=== PATIENT | male | born 1955 | race Caucasian/White ===

== ENCOUNTER → 2017-02-15 | Outpatient (CLI) | payer BC | LOC: CARD 09:40 | PROVIDERS: ATTEND Internal Medicine Cardiovascular Disease | DX: I25.10 Atherosclerotic heart disease of native coronary artery without angina pectoris (principal); E78.4 Other hyperlipidemia; E66.3 Overweight | CPT/HCPCS: 93306 ==

== ENCOUNTER → 2017-10-30 | Outpatient (CLI) | payer BC ==
[~2017-10-30] VITALS: Ht 185.4 cm; Wt 111.1 kg
[~2017-10-30] MED LIST: CATHETER FLUSH 10 ML SYR IV PRN
[2017-10-30 09:07] VITALS: BP 126/77
[2017-10-30 09:18] VITALS: BP 173/99
[2017-10-30 09:20] VITALS: BP 171/99
[2017-10-30 09:22] VITALS: BP 156/94
--- NOTE | 2017-10-31 10:10 | STRESS TEST ---
DATE OF SERVICE: 10/30/2017 RESTING AND POST EXERCISE TECHNETIUM-99M TETROFOSMIN SPECT CT IMAGING ORDERING PHYSICIAN: Lisa Gray APRN. ORDERING PHYSICIAN: Layla Morgan MD, MA, FACP, FACC. CLINICAL DIAGNOSIS: Coronary artery disease. Baseline images were carried out after injection of 10.91 mCi of technetium-99m Tetrofosmin. This was followed by exercise on a treadmill. Juan protocol was employed. Heart rate and blood pressure responses to exercise were normal. Exercise was stopped on account of fatigue. After he had attained more than 85% of maximum predicted heart rate, 30.3 mCi of technetium-99m Tetrofosmin were injected and the exercise was continued for another minute. Exercise was stopped on account of fatigue. He attained 96% of maximum predicted heart rate and 7.1 METS of workload. He exercised for a total of 5 minutes and 41 seconds in the Juan protocol. There was baseline artifact at peak exercise, but there did not appear to be significant ST segment changes over baseline. Review of images at rest and following stress indicates a partially transient lateral wall perfusion defect. Gated images show lateral wall hypokinesis. Left ventricular ejection fraction is calculated to be 64%. Left ventricular end diastolic volume is 93 mL. TID is absent (1.04). CONCLUSIONS: 1. The study is indicative of lateral wall infarction with a small to moderate amount of layne-infarct ischemia. 2. Lateral wall hypokinesis. 3. Well-preserved global left ventricular systolic function with an ejection fraction of 64%. 4. Somewhat low exercise capacity. Job ID: [id number] DocumentID: [id number] Dictated Date: 10/31/2017 09:15:33 Border Patrol Agent Date: 10/31/2017 10:10:13 Dictated By: LAYLA MORGAN MD, MA, FACP, FACC, MTDD
== END ==
LOC: CARD 06:58
PROVIDERS: ATTEND Nurse Practitioner Family
DX: I25.10 Atherosclerotic heart disease of native coronary artery without angina pectoris (principal)
CPT/HCPCS: 78452; 93017

== ENCOUNTER 2017-11-27 06:57 | Day surgery (SDC) | payer BC ==
[~2017-11-27] VITALS: Ht 185.4 cm; Wt 111.1 kg
[2017-11-27] VITALS (9 sets, daily range): BP systolic 117–133; BP diastolic 75–85
[2017-11-27] MEDS ORDERED: LIDOCAINE 1% INJ 20 ML 20 ML VIAL ONE (06:59)
[2017-11-27] MEDS ORDERED: HEParin (CATH LAB) 2,000 ML IV ONE (06:59)
[2017-11-27] MEDS ORDERED: NS IV 1000 ML 1,000 ML IV SCH ×2 (07:00→09:30)
--- OUTSIDE RECORDS SUMMARY | 2017-11-27 07:00 | XMS REPORT | Continuity of Care Document ---
Author Author [facility] Organization [facility] Address Unknown Phone Unavailable Allergies Active Description Code Type Severity Reaction Onset Reported/Identified Relationship to Patient Clinical Status Yes blue dye [id number] Drug Allergy Unknown N/A 10/30/2017 Medications There is no data. Problems Date Dx Coded Attending Type Code Diagnosis Diagnosed By 08/12/2015 JHON MORGAN MD, FACC FACP CCDS Ot Z48.812 ENCNTR FOR SURGICAL AFTCR FOLLOWING SURG 08/12/2015 JHON MORGAN MD, FACC FACP CCDS Ot Z95.5 PRESENCE OF CORONARY ANGIOPLASTY IMPLANT 10/10/2015 JHON MORGAN MD, FACC FACP CCDS Ot Z48.812 ENCNTR FOR SURGICAL AFTCR FOLLOWING SURG 10/10/2015 JHON MORGAN MD, FACC FACP CCDS Ot Z95.5 PRESENCE OF CORONARY ANGIOPLASTY IMPLANT 10/11/2015 JHON MORGAN MD, FACC FACP CCDS Ot Z48.812 ENCNTR FOR SURGICAL AFTCR FOLLOWING SURG 10/11/2015 JHON MORGAN MD, FACC FACP CCDS Ot Z95.5 PRESENCE OF CORONARY ANGIOPLASTY IMPLANT 06/06/2016 JHON MORGAN MD, FACC FACP CCDS Ot Z48.812 ENCNTR FOR SURGICAL AFTCR FOLLOWING SURG 06/06/2016 JHON MORGAN MD, FACC FACP CCDS Ot Z95.5 PRESENCE OF CORONARY ANGIOPLASTY IMPLANT 06/13/2016 JHON MORGAN MD, FACC FACP CCDS Ot Z48.812 ENCNTR FOR SURGICAL AFTCR FOLLOWING SURG 06/13/2016 JHON MORGAN MD, FACC FACP CCDS Ot Z95.5 PRESENCE OF CORONARY ANGIOPLASTY IMPLANT 02/20/2017 JHON MORGAN MD, FACC FACP CCDS Ot E66.3 OVERWEIGHT 02/20/2017 JHON MORGAN MD, FACC FACP CCDS Ot E78.4 OTHER HYPERLIPIDEMIA 02/20/2017 JHON MORGAN MD, FACC FACP CCDS Ot I25.10 ATHSCL HEART DISEASE OF [place] CORONARY 02/22/2017 CATHY VASQUEZ FACC, ALI FACP CCDS Ot E66.3 OVERWEIGHT 02/22/2017 CATHY VASQUEZ FACC, ALI FACP CCDS Ot E78.4 OTHER HYPERLIPIDEMIA 02/22/2017 CATHY MD FACC, ALI FACP CCDS Ot I25.10 ATHSCL HEART DISEASE OF [place] CORONARY 03/01/2017 CATHY VASQUEZ FACC, ALI FACP CCDS Ot E66.3 OVERWEIGHT 03/01/2017 CATHY VASQUEZ FACC, ALI FACP CCDS Ot E78.4 OTHER HYPERLIPIDEMIA 03/01/2017 CATHY VASQUEZ FACC, ALI FACP CCDS Ot I25.10 ATHSCL HEART DISEASE OF [place] CORONARY 10/26/2017 CATHY VASQUEZ FACC, ALI FACP CCDS Ot Z48.812 ENCNTR FOR SURGICAL AFTCR FOLLOWING SURG 10/26/2017 CATHY VASQUEZ FACJr, ALI FACP CCDS Ot Z95.5 PRESENCE OF CORONARY ANGIOPLASTY IMPLANT 10/26/2017 CATHY VASQUEZ FACC, ALI FACP CCDS Ot E66.3 OVERWEIGHT 10/26/2017 CATHY VASQUEZ FACC, ALI FACP CCDS Ot E78.4 OTHER HYPERLIPIDEMIA 10/26/2017 CATHY VASQUEZ FACC, ALI FACP CCDS Ot I25.10 ATHSCL HEART DISEASE OF [place] CORONARY 10/30/2017 CATHY VASQUEZ FACJr, ALI FACP CCDS Ot Z48.812 ENCNTR FOR SURGICAL AFTCR FOLLOWING SURG 10/30/2017 CATHY VASQUEZ FACC, ALI FACP CCDS Ot Z95.5 PRESENCE OF CORONARY ANGIOPLASTY IMPLANT 10/31/2017 ANJALI OWENS SUPERVISOR MACHINING Ot I25.10 ATHSCL HEART DISEASE OF [place] CORONARY 11/14/2017 ANJALI OWENS SUPERVISOR MACHINING Ot I25.10 ATHSCL HEART DISEASE OF [place] CORONARY Procedures There is no data. Results There is no data. Encounters ACCT No. Visit Date/Time Discharge Status Pt. Type Provider Facility Loc./Unit Complaint [id number] 10/30/2017 06:58:00 10/30/2017 23:59:59 CLS Outpatient ANJALI OWENSP [facility] CARD CAD [id number] 02/15/2017 09:40:00 02/15/2017 23:59:59 CLS Outpatient CATHY VASQUEZ FACC, ALI FACP CCDS [facility] CARD CAD I25.10 [id number] 10/11/2015 08:00:00 10/11/2015 23:59:59 CLS Preadmit CATHY VASQUEZ FACC, ALI FACP CCDS [facility] CR STENT [id number] 08/20/2015 08:00:00 10/10/2015 00:01:00 DIS Outpatient CATHY VASQUEZ FACC, ALI FACP CCDS [facility] CR STENT [id number] 11/27/2017 06:57:00 ACT Outpatient CATHY VASQUEZ FACC, JHON FACP CCDS [facility] CATH ABNORMAL STRESS TEST,CAD
[2017-11-27] MEDS ORDERED: LISI10TA2 PO (07:17)
[2017-11-27] MEDS ORDERED: ASPI-983 PO (07:17)
[2017-11-27] MEDS ORDERED: CARV6.25 PO (07:17)
[2017-11-27] MEDS ORDERED: ATOR80TA76 PO (07:17)
[2017-11-27 07:21] LABS: HEMOGLOBIN 14.7 G/DL (13.3-17.7); MEAN PLATELET VOLUME 9.4 FL (7.4-10.4); RED BLOOD COUNT 4.91 10^6/uL (4.35-5.85); RED CELL DISTRIBUTION WIDTH 13.1 % (10.0-14.5); WHITE BLOOD COUNT 5.4 10^3/uL (4.3-11.0)
[2017-11-27] MEDS ORDERED: fentaNYL INJECTION 100 MCG/2 ML AMP ONE (07:29)
[2017-11-27] MEDS ORDERED: HEParin 1000 UNIT/ML (10ML VIAL) FOR BOLUS ONE (07:29)
[2017-11-27] MEDS ORDERED: MIDAZOLAM 5 MG/5 ML (VERSED) VIAL ONE (07:29)
[2017-11-27] MEDS ORDERED: diphenhydrAMINE 25 MG TAB (BENADRYL) PO ONE ×3 (07:32→07:45)
[2017-11-27 07:35] LABS: PROTHROMBIN TIME PATIENT 12.9 SEC (12.2-14.7)
[2017-11-27 07:43] LABS: ALANINE AMINOTRANSFERASE 23 U/L (0-55); ALBUMIN 4.3 GM/DL (3.2-4.5); ALKALINE PHOSPHATASE 60 U/L (40-136); BILIRUBIN,TOTAL 1.5 MG/DL (0.1-1.0); BUN/CREATININE RATIO 20; CALCIUM 9.5 MG/DL (8.5-10.1); CARBON DIOXIDE 25 MMOL/L (21-32); CHLORIDE 104 MMOL/L (98-107); CHOLESTEROL 109 MG/DL (< 200); CREATININE SERUM 0.79 MG/DL (0.60-1.30); GFR ESTIMATED > 60; GLUCOSE 117 MG/DL (70-105); HDL CHOLESTEROL 35 MG/DL (40-60); POTASSIUM 4.2 MMOL/L (3.6-5.0); SODIUM 136 MMOL/L (135-145); TOTAL PROTEIN 7.1 GM/DL (6.4-8.2); TRIGLYCERIDES 62 MG/DL (<150); VLDL CHOLESTEROL 12 MG/DL (5-40)
[2017-11-27] MEDS ORDERED: FLU QUADRIvalent (5+ YOA) 2018-2019 (AFLURIA) 0.5 ML IM ONE (08:30)
[2017-11-27] MEDS ORDERED: ADENOSINE 3 MG/1 ML (ADENOSCAN) 30ML VIAL IV ONE ×2 (08:55→08:58)
[2017-11-27] MEDS ORDERED: ASPIRIN 81 MG CHEW (CHILDREN'S ASA) ONE (09:22)
[2017-11-27] MEDS ORDERED: CLOPIDOGREL 75 MG (PLAVIX) TABLET ONE (09:43)
--- NOTE | 2017-11-27 11:07 | Cardiac Procedure Note-CS/ASA ---
Pre-Procedure Note Pre-Op Procedure Note H&P Reviewed The H&P was reviewed, patient examined and no changes noted. Date H&P Reviewed: Nov 27, 2017 Time H&P Reviewed: 08:50 Conscious Sedation Pre-Proced Time 08:50 ASA Score 3 For ASA 3 and 4: Consider anesthesia and medical clearance. Also, for patients with a history of failed moderate sedation consider anesthesia. Airway Lungs Heart ASA score ASA 1: a normal healthy patient ASA 2: a patient with a mild systemic disease (mid diabetes, controlled hypertension, obesity ASA 3: a patient with a severe systemic disease that limits activity (angina , COPD, prior Myocardial infarction) ASA 4: a patient with an incapacitating disease that is a constant threat to life (CHF, renal failure) ASA 5: a moribund patient not expected to survive 24 hrs. (ruptured aneurysm) ASA 6: a declared brain patient whose organs are being harvested. For emergent operations, add the letter E after the classification Mallampati Classification Grade 2 Sedation Plan Analgesia, Amnesia, Plan communicated to team members, Discussed options with patient/fam, Discussed risks with patient/fam The patient is an appropriate candidate to undergo the planned procedure, sedation, and anesthesia. The patient immediately re-assessed prior to indication. JHON MORGAN MD FACP FAC CCDS Nov 27, 2017 11:07 am
[2017-11-27] MEDS ORDERED: CLOP75TA69 PO (11:09)
--- NOTE | 2017-11-27 11:09 | Discharge Inst-Post CATH ---
Discharge Inst-CATH Post Cardiac Cath D/C Inst Follow Up/Plan F/u with Dr Christopher next week CARDIAC CATH DISCHARGE INSTRUCTIONS *Hold Metformin for 48 hours post heart cath. ACTIVITY * Go Home directly and rest. * Limit activity of the leg (or wrist if it was used) for 7 days including aerobics, swimming, jogging, bicycling, etc. * Restrict stair-climbing for 7 days if possible, if not, climb up with your non -cath leg, then bring together on the same step. * Avoid lifting, pushing, pulling or excessive movement of the affected extremity for 7 days. * Customary sexual activity may be resumed after 2 days-use caution not to use a position that strains or causes pain to the affected extremity. * No driving for 24 hours. * NO SMOKING. * Avoid straining for bowel movements for 7 days. * Gentle walking on level ground is allowed. * Returning to work will depend on the type of procedure and the results. Your doctor will discuss this with you. CALL YOUR DOCTOR FOR ANY OF THE FOLLOWING: *If bleeding from the puncture site occurs- Apply gentle pressure to site with clean cloth and call your doctor or EMS. * If a knot or lump forms under the skin, increases in size, or causes pain. * If bruising appears to be worsening or moving further down your leg instead of disappearing. * Temperature above 101 F. CARE OF YOUR GROIN INCISION; * Bruising or purple discoloration of the skin near the puncture site is common. * You may shower only, no bathtub bathing for 5 days. Be careful to avoid slipping as your leg may feel stiff. * If a closure device was used on your femoral artery, please see the attached guide regarding care of the device and your leg. * Leave the dressing on, until removed by office staff. CARE OF YOUR WRIST INCISION; * Bruising or purple discoloration of the skin near the puncture site is common. * You may shower. * DO NOT submerge wrist. * Leave dressing on, until removed by office staff.. JHON CHRISTOPHER MD FACP [facility] CCDS Nov 27, 2017 11:09 am
--- NOTE | 2017-11-27 11:10 | Discharge Inst-Cardiology ---
Discharge Inst-Cardiac Discharge Medications New Medications: Clopidogrel Bisulfate (Plavix) 75 Mg Tablet 75 MG PO DAILY, #90 TAB 3 Refills Continued Medications: Aspirin (Aspirin EC) 81 Mg Tablet.dr 81 MG PO DAILY, TAB Atorvastatin Calcium (Atorvastatin Calcium) 80 Mg Tablet 80 MG PO HS, TAB Carvedilol (Coreg) 6.25 Mg Tablet 6.25 MG PO BID, TAB Lisinopril (Lisinopril) 10 Mg Tablet 10 MG PO DAILY, TAB Orders-Post D/C & Referrals Pneu Vac Indicated: Yes JHON MORGAN MD FACP FACC CCDS Nov 27, 2017 11:10 am
[2017-11-27] MEDS ORDERED: PATIENT MAY USE OWN MEDS, ALL PO SCH (11:15)
--- NOTE | 2017-11-27 12:29 | CARDIAC CATHETERIZATION ---
DATE OF SERVICE: 11/27/2017 CARDIAC CATHETERIZATION REPORT The patient is a 62-year-old male with a history of coronary stenting (right coronary artery) in 2016 in [facility]. He had a recent stress test that indicated a lateral ischemia. Cardiac catheterization was carried out today after having obtained an informed consent. PROCEDURE: He was brought to the cardiac catheterization laboratory in a fasting state. Right groin was prepared and draped in the usual sterile fashion. Lidocaine 1% was used for local anesthesia. Modified Seldinger technique was used to advance a 5-Syrian sheath in right femoral artery. A 5-Syrian JL4 catheter for left coronary angiography, 6-Syrian JR4 catheter for right coronary angiography, 5-Syrian pigtail catheter was used for left heart catheterization and left ventricular angiography. FRACTIONAL FLOW RESERVE MEASUREMENT IN THE PROXIMAL LEFT ANTERIOR DESCENDING ARTERY: Following completion of the diagnostic procedure, we carried out fractional flow reserve measurement across a lesion in the proximal left anterior descending artery that also involves the origin of the first diagonal branch. This appeared to be a 60 to 70% stenosis. We exchanged the sheath over a wire for a 6-Syrian sheath and used a 6-Syrian JR4 guide catheter to engage the left coronary artery and advanced the pressure wire across the lesion. Adenosine was infused for two and a half minutes at 140 mcg per kilogram per minute. Fractional flow reserve was measured at 0.79, indicating hemodynamic significance. The patient received 5000 units of heparin during the procedure. The wire was removed. Repeat angiography indicated no change in coronary status. We removed the guide catheter. Angiography of the right femoral artery had been carried out through the sheath at the beginning the procedure. At the end of the procedure, Mynx was used to achieve venous hemostasis. HEMODYNAMICS: Left ventricular end-diastolic pressure following coronary angiography was 7 mmHg. There was no significant pressure gradient on pullback across the aortic valve. The ascending aortic pressure was 102/63 with a mean of 81 mmHg. LEFT VENTRICULAR ANGIOGRAPHY: Left ventricular angiography was carried out in the right anterior oblique and the left anterior oblique projections. Global left ventricular systolic function is normal. No distinct regional wall motion abnormalities seen. Left ventricular ejection fraction is approximately 60%. CORONARY ANGIOGRAPHY: Left main coronary artery is free of significant disease. Left anterior descending artery has 60% to 70% proximal stenosis that is a long lesion and also involves the origin of the first diagonal branch. Fractional flow reserve across this lesion is 0.79. The mid left anterior descending artery has approximately 50% stenosis. The very distal portion of the left anterior descending artery, right before termination, has 70% to 80% stenosis. Here, the vessel is of a very small caliber. Left circumflex artery is nondominant and has diffuse mild plaques. Right coronary artery is dominant and has a widely patent stent in its proximal and distal portions. CONCLUSIONS: 1. Coronary artery disease primarily consisting of 70% proximal LAD stenosis that is a bifurcation lesion and the fractional flow reserve measurement across which is 0.79. The right coronary artery is dominant and has a widely patent proximal and distal stents that are known to have been placed in 2016. 2. Normal global left ventricular systolic function with an ejection fraction of approximately 60%. 3. Normal left ventricular end-diastolic pressure. 4. No significant mitral regurgitation. DISCUSSION AND RECOMMENDATIONS: Based on the results of the study, coronary artery bypass surgery appears to be the best treatment option, given the proximal lesion in the left anterior descending artery that also involves the first diagonal branch. This was discussed with him. He is considering his options. We are adding Plavix to his current regimen. Aspirin and statins and beta tiarra are being continued. Outpatient followup is advised Job ID: [id number] DocumentID: [id number] Dictated Date: 11/27/2017 11:25:35 Remote Sensing Specialist Date: 11/27/2017 12:29:08 Dictated By: JHON MORGAN MD, MA, FACP, FACC, MTDD
== END 2017-11-27 13:05 | disposition home or self-care (01) ==
LOC: CATH 06:57 → SDC 10:09 → CATH 13:05
PROVIDERS: ATTEND Internal Medicine Cardiovascular Disease
DX: I25.10 Atherosclerotic heart disease of native coronary artery without angina pectoris (principal); E78.49 Other hyperlipidemia; E66.9 Obesity, unspecified; Z68.32 Body mass index [BMI] 32.0-32.9, adult; Z82.49 Family history of ischemic heart disease and other diseases of the circulatory system; Z79.82 Long term (current) use of aspirin; Z79.899 Other long term (current) drug therapy; Z95.5 Presence of coronary angioplasty implant and graft
CPT/HCPCS: 36415; 80053; 80061; 85027; 85610; 85730; 87081; 93458

== ENCOUNTER 2018-04-17 10:42 | Outpatient (RCR) | payer BC ==
[~2018-04-17 10:42] MED LIST changes: +ASPI-983 PO; +ATOR80TA76 PO; +CARV6.25 PO; -CATHETER FLUSH 10 ML SYR IV PRN; +CLOP75TA69 PO; +LISI10TA2 PO
== END 2018-05-07 | disposition home or self-care (01) ==
LOC: CR 10:42
PROVIDERS: ATTEND Thoracic Surgery (Cardiothoracic Vascular Surgery)
DX: Z48.812 Encounter for surgical aftercare following surgery on the circulatory system (principal); Z95.1 Presence of aortocoronary bypass graft
CPT/HCPCS: 93798

== ENCOUNTER → 2022-07-07 | Outpatient (CLI) | payer MEDICARE, OTHER ==
[~2022-07-07] MED LIST changes: +ASPI-1238 PO; -ASPI-983 PO; +CATHETER FLUSH 10 ML SYR IVP PRN; +CLOP-31 PO; -CLOP75TA69 PO; -LISI10TA2 PO; +LISI10TA25 PO; +REGADENOSON 0.4 MG/5 ML SYR (LEXISCAN) IV ONE
[2022-07-07 09:33] VITALS: BP 142/85
--- NOTE | 2022-07-10 19:20 | STRESS TEST ---
DATE OF SERVICE: 07/07/2022 RESTING AND POST REGADENOSON TECHNETIUM-99M TETROFOSMIN SPECT CT IMAGING ORDERING PHYSICIAN: Dr. Christopher. PRIMARY PHYSICIAN: Dr. Campos. CLINICAL DIAGNOSIS: Coronary artery disease. Baseline images were carried out after injection of 9.98 mCi of technetium-99m tetrofosmin. This was followed by 0.4 mg regadenoson and 27.6 mCi of technetium-99m tetrofosmin for stress imaging. The electrocardiogram showed sinus rhythm with baseline artifact. The electrocardiogram did not change significantly with the regadenoson infusion. The patient tolerated the procedure well. Review of images at rest and following stress indicates an inferolateral perfusion defect which is predominantly fixed. Gated images show inferolateral hypokinesis. Left ventricular ejection fraction is calculated to be 49%. This study is technically difficult because of considerable patient motion during stress image acquisition. CONCLUSIONS: 1. Inferolateral myocardial infarction with a small amount of layne-infarct ischemia. 2. Inferolateral hypokinesis. 3. Mild impairment of global left ventricular systolic function with a calculated ejection fraction of 49%. Job ID: [id number] DocumentID: [id number] Dictated Date: 07/10/2022 13:06:49 Engraver Rubber Date: 07/10/2022 15:15:00 Dictated By: JHON CHRISTOPHER MD; MOON; FACP; FACC;
== END ==
LOC: CARD 06:37
PROVIDERS: ATTEND Internal Medicine Cardiovascular Disease
DX: I25.10 Atherosclerotic heart disease of native coronary artery without angina pectoris (principal)
CPT/HCPCS: 78452; 93017; A9502